=== PATIENT | female | born 1995 | race Caucasian/White ===

== ENCOUNTER 2016-12-05 07:12 | Emergency (ER) | payer OTHER ==
[~2016-12-05] VITALS: Ht 170.2 cm; Wt 56.2 kg
[~2016-12-05 07:12] MED LIST: ZOFRAN4 M1 SL
[2016-12-05 07:16] VITALS: BP 117/72
--- NOTE | 2016-12-05 07:58 | ED SKIN/ALLERGY COMPLAINT ---
History of Present Illness General Chief Complaint: Animal/Insect Bite Stated Complaint: DOG BITE Source: patient Exam Limitations: no limitations Vital Signs & Intake/Output Vital Signs & Intake/Output Vital Signs Date Time Temp Pulse Resp B/P Pulse O2 O2 Flow FiO2 Ox Delivery Rate 12/05 0716 98.0 88 20 117/72 100 Room Air Allergies Coded Allergies: NO KNOWN ALLERGIES (11/10/14) Reconcile Medications Augmentin (Augmentin 500-125 Tablet) 500 MG-125 MG TABLET 1 TAB PO TID INFECTION Ibuprofen 800 MG TABLET 1 TAB PO TID PRN pain Ondansetron (Zofran Odt) 4 MG TAB.RAPDIS 1 TAB SL Q6P PRN NAUSEA OR VOMITING Triage Note: PT TO ED C/O DOG BITE TO RIGHT HAND/WRIST. HAPPENED LAST NIGHT. PT DID NOT KNOW DOG. PT UNSURE OF LAST TETANUS SHOT. 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 Triage Nurses Notes Reviewed? yes : No Patient currently breastfeeds: No HPI: Patient presents for evaluation of a dog bite that occurred about 8:00 last night. Patient states that she was walking with a friend and was approached by a dog on the street. Patient was bitten on the right hand. The dog then ran off. The patient does not know whose dog it is. Patient is currently complaining of pain in the area of the bite and paresthesias in the dorsal aspect of the right hand. Past History Travel History Traveled to [place] past 21 day No Medical History Any Pertinent Medical History? see below for history Neurological: NONE EENT: NONE Cardiovascular: NONE Respiratory: NONE Gastrointestinal: ACID REFLUX ULCER Hepatic: NONE Renal: NONE Musculoskeletal: NONE Psychiatric: NONE Endocrine: NONE Blood Disorders: NONE Surgical History Surgical History: non-contributory Psychosocial History What is your primary language Pashto Tobacco Use: Current Daily Use Daily Tobacco Use Amount/Type: => 5 Cigarettes daily ETOH Use: denies use Illicit Drug Use: denies illicit drug use Family History Hx Contributory? No Review of Systems Review of Systems Constitutional: Reports: no symptoms. EENTM: Reports: no symptoms. Respiratory: Reports: no symptoms. Cardiovascular: Reports: no symptoms. GI: Reports: no symptoms. Genitourinary: Reports: no symptoms. Musculoskeletal: Reports: no symptoms. Skin: Reports: see HPI. Neurological/Psychological: Reports: no symptoms. Hematologic/Endocrine: Reports: no symptoms. Immunologic/Allergic: Reports: no symptoms. All Other Systems: Reviewed and Negative Physical Exam Physical Exam General Appearance: see below Comments: Gen.: Well-nourished, well-developed, no acute respiratory distress. Head: Normocephalic, atraumatic. Eyes: Normal inspection bilaterally Ears: Normal inspection bilaterally Nose: Normal inspection, nasal cannula in place Throat/mouth : Moist mucosa Neck: Supple, full range of motion, no goiter Heart: Regular rate and rhythm Lungs: Quiet respirations Back: Normal range of motion Extremities: Right hand: Superficial Puncture/torn wound of the thenar eminence of the right hand with dorsal soft tissue swelling. There is no significant warmth or erythema. Patient has full range of motion of the fingers (although with some discomfort) and sensation and capillary refill are intact all digits. Right wrist: Parallel linear abrasions. Neurologic: Cranial nerves grossly intact, speech is clear Skin: warm and dry Psychiatric: Calm, cooperative, no apparent delusions or hallucinations Diagram Hands, Palmar: 1) Superficial laceration/tear/puncture wound 2) Linear abrasions Progress Differential Diagnosis: tendon injury, foreign body, rabies exposure, cellulitis Plan of Care: Orders Procedure Date/time Status Durable Medical Equipment 12/05 0810 Active Comments: Given the mechanism of injury and the patient's examination I doubt fracture or dislocation. Patient agrees that it is unlikely she has broken any bones. Likewise it seems to be no foreign body sensation or foreign body present on exam so I do not feel that x-rays would be of benefit at this time. Patient agrees. Departure Departure Disposition: HOME OR SELF CARE Condition: Stable Clinical Impression Primary Impression: Laceration of right hand Secondary Impressions: Abrasion of right wrist Qualifiers: Encounter type: initial encounter Qualified Code: S60.811A - Abrasion of right wrist, initial encounter Dog bite of right hand Qualifiers: Encounter type: initial encounter Qualified Codes: S61.451A - Open bite of right hand, initial encounter; W54.0XXA - Bitten by dog, initial encounter Immunization, tetanus toxoid Rabies, need for prophylactic vaccination against Sprain of hand, right Referrals: RIANA CH (PCP/Family) Additional Instructions: Augmentin as prescribed to prevent wound infection. He will need to continue a rabies vaccination series, contact her primary care physician regarding this. If you're physician cannot give you the immunizations please return to the emergency department. Wrist splint as needed. Ibuprofen 600 mg every 6 hours as needed for pain. Ice and elevation over the next 48 hours. Return if any concerns or sudden worsening. Thank you for choosing the [facility] for your care. It was a pleasure to serve you today. Marino Smith M.D. [facility] Departure Forms: Customer Survey General Discharge Information RELEASE- WORK Prescriptions: Current Visit Scripts Augmentin (Augmentin 500-125 Tablet) 1 TAB PO TID #21 TAB Ibuprofen 1 TAB PO TID PRN pain #21 TAB
[2016-12-05] MEDS ORDERED: AUGMENTIN 500-1 EACH PO (08:09)
[2016-12-05] MEDS ORDERED: IBUPROFEN800 M1 PO (08:09)
== END 2016-12-05 09:18 ==
LOC: ERH 07:12
DX: S61.411A Laceration without foreign body of right hand, initial encounter (principal); S60.811A Abrasion of right wrist, initial encounter; S63.501A Unspecified sprain of right wrist, initial encounter; W54.0XXA Bitten by dog, initial encounter; Y93.01 Activity, walking, marching and hiking; Y92.410 Unspecified street and highway as the place of occurrence of the external cause
CPT/HCPCS: 90376; 90471; 90714; 96372; J3490

== ENCOUNTER 2016-12-08 15:55 | Emergency (ER) | payer OTHER ==
[~2016-12-08] VITALS: Ht 170.2 cm; Wt 56.2 kg
[~2016-12-08 15:55] MED LIST changes: +AUGMENTIN 500-1 EACH PO; +IBUPROFEN800 M1 PO
[2016-12-08 16:01] VITALS: BP 123/85
--- NOTE | 2016-12-08 16:17 | ED ANIMAL BITE/WOUND CHECK ---
History of Present Illness General Chief Complaint: General Adult Stated Complaint: HERE FOR RABBIES SHOT Source: patient, old records Exam Limitations: no limitations Vital Signs & Intake/Output Vital Signs & Intake/Output Vital Signs Date Time Temp Pulse Resp B/P Pulse O2 O2 Flow FiO2 Ox Delivery Rate 12/08 1708 98.0 80 16 98 Room Air 12/08 1601 98.9 82 20 123/85 99 Room Air Room Air Allergies Coded Allergies: NO KNOWN ALLERGIES (11/10/14) Reconcile Medications Augmentin (Augmentin 500-125 Tablet) 500 MG-125 MG TABLET 1 TAB PO TID INFECTION Ibuprofen 800 MG TABLET 1 TAB PO TID PRN pain Triage Note: PT TO ED FOR 2ND RABIES SHOT, SEEN IN ED 3 DAYS AGO FOR DOG BITE TO RIGHT HAND. PT CONTINUES TO C/O RIGHT HAND AND WRIST PAIN, SPLINT INTACT. Triage Nurses Notes Reviewed? yes : No Patient currently breastfeeds: No HPI: Patient is a 21-year-old female presents requesting her second rabies vaccination and complaining of right wrist pain. Patient reports that she was bit by a large dog 3 days ago to her right wrist. Patient was seen in the emergency department was administered the rabies immunoglobulin and vaccination, placed on Augmentin and ibuprofen and discharged home. Patient reports that she 's been taking the ibuprofen with no significant improvement of her pain. Pain to the right anterior wrist is moderate to severe at rest, worsens with movement and palpation. Patient has been taking a Velcro wrist splint. Patient reports she had swelling to the dorsal surface of her right hand which has been improving. Patient denies discharge from the wounds, fevers. (VADIM JOSEPH) Past History Travel History Traveled to [place] past 21 day No Medical History Any Pertinent Medical History? see below for history Neurological: NONE EENT: NONE Cardiovascular: NONE Respiratory: NONE Gastrointestinal: ACID REFLUX ULCER Hepatic: NONE Renal: NONE Musculoskeletal: NONE Psychiatric: NONE Endocrine: NONE Blood Disorders: NONE Tetanus Vaccine: 12/05/16 Surgical History Surgical History: non-contributory Psychosocial History What is your primary language Estonian Tobacco Use: Never used ETOH Use: denies use Illicit Drug Use: denies illicit drug use Family History Hx Contributory? No (VADIM JOSEPH) Review of Systems Review of Systems Constitutional: Denies: fever. Respiratory: Reports: no symptoms. Cardiovascular: Reports: no symptoms. GI: Reports: abdominal pain (chronic, intermittent). Denies: nausea, vomiting. Musculoskeletal: Reports: see HPI. Skin: Reports: see HPI. Neurological/Psychological: Reports: paresthesia (occasional right hand). Denies: numbness. Hematologic/Endocrine: Denies: bruising, bleeding. Immunologic/Allergic: Denies: splenectomy. (VADIM JOSEPH) Physical Exam Physical Exam General Appearance: well developed/nourished, alert, awake Head: atraumatic, normal appearance Eyes: Bilateral: normal appearance, PERRL, EOMI. Ears, Nose, Throat: hearing grossly normal Neck: normal inspection, full range of motion Respiratory: no respiratory distress Peripheral Pulses: 2+ radial (R) Back: normal inspection, normal range of motion Extremities: 2 superficial lacerations to the right anterior wrist 1-2 cm. No surrounding erythema. Tenderness right mid anterior wrist. Puncture wound right dorsal hand over the mid third metacarpal. No surrounding erythema, swelling, or drainage. Full range of motion of right hand and fingers. Neurologic/Psych: no motor/sensory deficits, awake, alert, oriented x 3, normal gait Skin: see extremities exam (VADIM JOSEPH) Progress Differential Diagnosis: abscess, cellulitis, rabies prophylaxis, foreign body, fracture Plan of Care: Orders Procedure Date/time Status XRY-WRIST COMPLETE-RIGHT 12/08 1613 Active Current Medications Sig/Tammy Start time Last Medication Dose Stop Time Status Admin Rabies Vaccine 1 SYR ONCE ONE 12/08 161 AC (Rabies (Vaccine) 12/08 161 Inj (1ML)) Diagnostic Imaging: Viewed by Me: Radiology Read. Discussed w/RAD: Radiology Read. Radiology Impression: PATIENT: SURI ZAMORANO PRESENT AGE: 21 PATIENT ACCOUNT NO: [id number] : 93 LOCATION: [facility] ORDERING PHYSICIAN: VADIM HUBBARD SERVICE DATE: 12/08/16-1613 EXAM TYPE: RAD - XRY-WRIST COMPLETE-RIGHT EXAMINATION: XR WRIST, RIGHT CLINICAL INFORMATION: Dog bite 3 days ago COMPARISON: None TECHNIQUE: AP, lateral, and oblique views of the right wrist. FINDINGS: The bones and soft tissues are normal. No fracture. Alignment is anatomic with normal joint spaces. No erosions or abnormal soft tissue calcifications. IMPRESSION: Normal right wrist. DICTATED BY: LUANA DAWSON MD DATE/TIME DICTATED:12/08/161627 CHILD NEUROLOGIST:NING DATE/TIME TRANSCRIBED:12/08/161627 CONFIDENTIAL, DO NOT COPY WITHOUT APPROPRIATE AUTHORIZATION. <Electronically signed in Other Vendor System> SIGNED BY: LUANA DAWSON MD 12/08/16 1632 (VADIM JOSEPH) Departure Departure Time of Disposition: 1656 Disposition: HOME OR SELF CARE Condition: Stable Clinical Impression Primary Impression: Rabies, need for prophylactic vaccination against Secondary Impressions: Encounter for wound re-check Referrals: RIANA CH (PCP/Family) Additional Instructions: Continue the antibiotics as previously directed. Wear the wrist splint for support. Continue the ibuprofen. Return to the emergency department in 4 days for your next rabies vaccination and for recheck of the wounds. Return immediately if redness spreading from the wound, pus from the wounds, fevers, or worsening of symptoms. Departure Forms: Customer Survey General Discharge Information (VADIM JOSEPH) PA/[employer] PRODUCTION MANAGER Co-Sign Statement Statement: ED Attending supervision documentation- [] I saw and evaluated the patient. I have also reviewed all the pertinent lab results and diagnostic results. I agree with the findings and the plan of care as documented in the PA's/[employer] PRODUCTION MANAGER's documentation. [X] I have reviewed the ED Record and agree with the PA's/[employer] PRODUCTION MANAGER's documentation. [] Additions or exceptions (if any) to the PAs/SE[employer] PRODUCTION MANAGER's note and plan are summarized below: [] (JOSE JUAN HURTADO DO)
--- NOTE | 2016-12-08 16:32 | RADIOLOGY REPORT ---
EXAMINATION: XR WRIST, RIGHT CLINICAL INFORMATION: Dog bite 3 days ago COMPARISON: None TECHNIQUE: AP, lateral, and oblique views of the right wrist. FINDINGS: The bones and soft tissues are normal. No fracture. Alignment is anatomic with normal joint spaces. No erosions or abnormal soft tissue calcifications. IMPRESSION: Normal right wrist.
== END 2016-12-08 17:08 ==
LOC: ERH 15:55
DX: Z23 Encounter for immunization (principal); Z48.01 Encounter for change or removal of surgical wound dressing; M25.531 Pain in right wrist
CPT/HCPCS: 73110-RT; 90471

== ENCOUNTER 2016-12-12 15:47 | Emergency (ER) | payer OTHER ==
[~2016-12-12] VITALS: Ht 170.2 cm; Wt 55.3 kg
[2016-12-12 16:00] VITALS: BP 113/75
--- NOTE | 2016-12-12 16:16 | ED ANIMAL BITE/WOUND CHECK ---
History of Present Illness General Chief Complaint: Animal/Insect Bite Stated Complaint: RABIES VAC Source: patient, old records Exam Limitations: no limitations Vital Signs & Intake/Output Vital Signs & Intake/Output Vital Signs Date Time Temp Pulse Resp B/P Pulse O2 O2 Flow FiO2 Ox Delivery Rate 12/12 1600 98.0 80 16 113/75 98 Room Air ED Intake and Output 12/13 0000 12/12 1200 Intake Total 0 Output Total Balance 0 Intake, Oral 0 Patient 122 lb Weight Allergies Coded Allergies: NO KNOWN ALLERGIES (11/10/14) Reconcile Medications Augmentin (Augmentin 500-125 Tablet) 500 MG-125 MG TABLET 1 TAB PO TID INFECTION Ibuprofen 800 MG TABLET 1 TAB PO TID PRN pain Triage Note: PT HERE FOR RABIES VACCINE Triage Nurses Notes Reviewed? yes Onset: Abrupt Duration: week(s): (1), better Timing: remote history Injury Environment: street Is Injury an Animal Bite? Yes Animal Type: dog Severity: mild Severity Numbers: 1 No Modifying Factors: none Associated Symptoms: DENIES : No Patient currently breastfeeds: No HPI: This is a 21-year-old female presents for evaluation wound check and need for rabies prophylaxis. The patient denies any complaints she denies any redness warmth discharge from the wounds which she states while healing she finished her course of antibiotics. She has 1 more dose of rabies vaccine she needs next week. She is otherwise without complaints or modifying factors or associated symptoms otherwise. (CARLOS MANUEL RIVERO) Past History Travel History Traveled to [place] past 21 day No Medical History Any Pertinent Medical History? see below for history Neurological: NONE EENT: NONE Cardiovascular: NONE Respiratory: NONE Gastrointestinal: ACID REFLUX ULCER Hepatic: NONE Renal: NONE Musculoskeletal: NONE Psychiatric: NONE Endocrine: NONE Blood Disorders: NONE Tetanus Vaccine: 12/05/16 Surgical History Surgical History: non-contributory Psychosocial History What is your primary language Grenadian Tobacco Use: Current Daily Use Daily Tobacco Use Amount/Type: => 5 Cigarettes daily ETOH Use: denies use Illicit Drug Use: denies illicit drug use Family History Hx Contributory? No (CARLOS MANUEL RIVERO) Review of Systems Review of Systems Constitutional: Reports: see HPI. All Other Systems: Reviewed and Negative Comments Review of systems: See HPI, All other systems negative. Constitutional, no chills no fever, no malaise HEENT: no sore throat no congestion Cardiovascular: No chest pain , no palpitation , Skin, no rashes, no change in skin Respiratory: No dyspnea no cough no sputum GI: No nausea no vomiting, no diarrhea, Muscle skeletal: No joint pain,, no back pain, no neck pain, Neurologic: no headache Psych: No stress Heme/endocrine: No bruising no bleeding Immunology: No lymphadenopathy (CARLOS MANUEL RIVERO) Physical Exam Physical Exam General Appearance: well developed/nourished, alert, awake Comments: Well-developed well-nourished patient in no apparent distress. HEENT: Atraumatic, extraocular motion intact Neck: Supple, FROM, Back: FROM, Cardiovascular: Regular rate and rhythms no murmurs rubs or gallops, Respiratory: No respiratory distress. Patient speaking in full complete sentences. Breath sounds clear to auscultation bilaterally: NO W/R/R Extremities: full range of motion Neuro: Alert and oriented x3 Skin: Warm & dry; wounds are well-healed to the volar right wrist and forearm there is no streaking erythema induration and fluctuance nontender no swelling or ecchymosis Psych: Mood affect normal, normal memory normal judgment. (CARLOS MANUEL RIVERO) Progress Differential Diagnosis: abscess, cellulitis, joint infection Plan of Care: I discussed with the patient at length all of their results. I had an extensive conversation regarding need for close follow up with their primary care physician this week as well as return precautions. I answered all of their questions, they feel comfortable with the plan and follow-up care. (CARLOS MANUEL RIVERO) Departure Departure Time of Disposition: 5 Disposition: HOME OR SELF CARE Condition: Stable Clinical Impression Primary Impression: Need for prophylactic vaccination against rabies Referrals: RIANA CH (PCP/Family) Additional Instructions: FOLLOW UP PREVIOUSLY DISCUSSED FOR FINAL RABIES VACCINE. RETURN WITH ANY CONCERNS Departure Forms: Customer Survey General Discharge Information (CARLOS MANUEL RIVERO) PA/FUR WEIGHER Co-Sign Statement Statement: ED Attending supervision documentation- [] I saw and evaluated the patient. I have also reviewed all the pertinent lab results and diagnostic results. I agree with the findings and the plan of care as documented in the PA's/FUR WEIGHER's documentation. [X] I have reviewed the ED Record and agree with the PA's/FUR WEIGHER's documentation. [] Additions or exceptions (if any) to the PAs/FUR WEIGHER's note and plan are summarized below: [] (CHAVO SAEZ,NEERAJ)
== END 2016-12-12 16:26 ==
LOC: ERH 15:47
DX: Z23 Encounter for immunization (principal)
CPT/HCPCS: 90471; 99281

== ENCOUNTER 2016-12-19 18:53 | Emergency (ER) | payer OTHER ==
[~2016-12-19] VITALS: Ht 170.2 cm; Wt 56.2 kg
[2016-12-19 18:56] VITALS: BP 120/79
--- NOTE | 2016-12-19 19:09 | ED GENERAL ADULT ---
History of Present Illness General Chief Complaint: General Adult Stated Complaint: 3RD RABIES Source: patient Exam Limitations: no limitations Vital Signs & Intake/Output Vital Signs & Intake/Output Vital Signs Date Time Temp Pulse Resp B/P B/P Pulse O2 O2 Flow FiO2 Mean Ox Delivery Rate 12/19 1856 97.5 87 16 120/79 99 Room Air Allergies Coded Allergies: NO KNOWN ALLERGIES (11/10/14) Reconcile Medications Augmentin (Augmentin 500-125 Tablet) 500 MG-125 MG TABLET 1 TAB PO TID INFECTION Ibuprofen 800 MG TABLET 1 TAB PO TID PRN pain Triage Note: PT HERE FOR 3RD RABIES SHOT. PT LAST INJECTION WAS LAST MONDAY. PT DENIES ANY REACTION TO INJECTIONS. Triage Nurses Notes Reviewed? yes Onset: Abrupt Duration: day(s): Timing: recent history Injury Environment: home : No Patient currently breastfeeds: No HPI: 21-year-old female comes in for her last rabies vaccine. Patient had been bitten by a stray dog. She denies any symptoms. Denies any other associated symptoms at this time. No pain currently. She reported a small bump on her right wrist where she was bitten that she wasn't sure exactly what it was. (ANGELINA HUNT) Past History Travel History Traveled to [place] past 21 day No Medical History Any Pertinent Medical History? see below for history Neurological: NONE EENT: NONE Cardiovascular: NONE Respiratory: NONE Gastrointestinal: ACID REFLUX ULCER Hepatic: NONE Renal: NONE Musculoskeletal: NONE Psychiatric: NONE Endocrine: NONE Blood Disorders: NONE Tetanus Vaccine: 12/05/16 Surgical History Surgical History: non-contributory Psychosocial History What is your primary language Czech Tobacco Use: Current Daily Use Daily Tobacco Use Amount/Type: => 5 Cigarettes daily ETOH Use: occasional use Illicit Drug Use: denies illicit drug use Family History Hx Contributory? No (ANGELINA HUNT) Review of Systems Review of Systems Constitutional: Reports: no symptoms. EENTM: Reports: no symptoms. Respiratory: Reports: no symptoms. Cardiovascular: Reports: no symptoms. GI: Reports: no symptoms. Genitourinary: Reports: no symptoms. Musculoskeletal: Reports: see HPI. Skin: Reports: see HPI. Neurological/Psychological: Reports: no symptoms. Hematologic/Endocrine: Reports: no symptoms. Immunologic/Allergic: Reports: no symptoms. All Other Systems: Reviewed and Negative (ANGELINA HUNT) Physical Exam Physical Exam General Appearance: well developed/nourished, no apparent distress, alert, awake Head: atraumatic Eyes: Bilateral: normal appearance. Ears, Nose, Throat: normal ENT inspection, hearing grossly normal Neck: normal inspection Respiratory: normal breath sounds, no respiratory distress Back: normal range of motion Extremities: normal inspection, normal range of motion, superficial healing skin abrasions/lacerations, tenderness over distal radius, no acute findings Neurologic/Psych: awake, alert, oriented x 3 Skin: intact, normal color Core Measures ACS in differential dx? No CVA/TIA Diagnosis: No Severe Sepsis Present: No Septic Shock Present: No (ANGELINA HUNT) Progress Differential Diagnoses I considered the following diagnoses in my evaluation of the patient: distal radius fracture, bone contusion, cellulitis, abscess, rabies Plan of Care: No acute findings on exam. Patient clinically looks well. Initial ED EKG: none (ANGELINA HUNT) Departure Departure Disposition: HOME OR SELF CARE Condition: Stable Clinical Impression Primary Impression: Rabies exposure Referrals: RIANA CH (PCP/Family) Additional Instructions: rETURN PREVIOUSLY DIRECTED. rETURN IF ANY OTHER CONCERNS WORSENING SYMPTOMS. Departure Forms: Customer Survey General Discharge Information (ANGELINA HUNT) PA/PRINTED CIRCUIT BOARD ASSEMBLER Co-Sign Statement Statement: ED Attending supervision documentation- [] I saw and evaluated the patient. I have also reviewed all the pertinent lab results and diagnostic results. I agree with the findings and the plan of care as documented in the PA's/PRINTED CIRCUIT BOARD ASSEMBLER's documentation. [X] I have reviewed the ED Record and agree with the PA's/PRINTED CIRCUIT BOARD ASSEMBLER's documentation. [] Additions or exceptions (if any) to the PAs/PRINTED CIRCUIT BOARD ASSEMBLER's note and plan are summarized below: [] (ADELINA SAEZ,MARVIN Biswas) Critical Care Note Critical Care Note Critical Care Time: non-applicable (ANGELINA HUNT)
== END 2016-12-19 19:10 ==
LOC: ERH 18:53
DX: Z20.3 Contact with and (suspected) exposure to rabies (principal)
CPT/HCPCS: 99281